=== PATIENT | female | born 1965 | race Caucasian/White ===

== ENCOUNTER → 2016-10-22 | Outpatient (CLI) | payer OTHER ==
--- NOTE | 2016-10-22 17:13 | MR ---
MRI of the Cervical Spine (Without Contrast) at 1359 hour History: Numbness and tingling left arm. History of degenerative disk disease cervical spine. (R 20.2 ) Technique: Sagittal T1, T2, and STIR along with axial T2 weighted 3-D FSE and T2 weighted COSMIC MR s equences of the cervical spine without contrast. Findings: Cervical vertebral bodies are normal in height and alignment without compression fractur es or spondylolisthesis. Cerebellar tonsils are in normal position. Cervical spinal cord demonstrate s normal signal without cord edema or myelomalacia. There is a dominant cystic structure in the sella measuring 15 x 12 mm on the more superior margin of the image obtained. C2-C3: Normal. C3-C4: Mild desiccation and loss of disk height. There is mild diffuse disk bulge causing minimal com pression upon the dural sac without consequences. C4-C5: Normal. C5-C6: Desiccation and loss of disk height. There is moderate diffuse disk bulge with associated fredi inal osteophyte that abuts the anterior margin of the cervical spinal cord with some loss of surround ing CSF compatible with moderate spinal stenosis. There is mild to moderate bilateral neural foramina l stenosis secondary to posterior lateral disk bulge with osteophyte formation. C6-C7: Mild to moderate desiccation and loss of disk height. There is mild to moderate diffuse disk b ulge causing mild compression upon the anterior dural sac with mild spinal stenosis good there is mil d bilateral neural foraminal stenosis secondary to disk and osteophyte. C7-T1: Normal. Impression: 1. Degenerative disk disease lower cervical spine with findings most prominent at C5-C6 and at C6-C7 as detailed above. 2. Cystic lesion within the sella along the superior margin of the images obtained. This is nonspecif ic but could represent Rathke's cleft cyst versus possibility of empty sella or arachnoid cyst. Crani opharyngioma is felt to be less likely. Consider dedicated MRI pituitary without and with contrast fo r further characterization. Please see findings at specific disk levels. A Follow-Up Required test result notification was sent via the [employer] service, 5:11:47 PM, 10/22/2016, [employer] Message ID [id number].
== END ==
LOC: FIMAGING 13:37
PROVIDERS: ATTEND Internal Medicine
DX: M50.822 Other cervical disc disorders at C5-C6 level (principal); M50.823 Other cervical disc disorders at C6-C7 level; R93.8 Abnormal findings on diagnostic imaging of other specified body structures

== ENCOUNTER → 2017-01-08 | Outpatient (CLI) | payer OTHER ==
[~2017-01-08] MED LIST: GADOBUTROL 10 ML VIAL IVP ONE
== END ==
LOC: FIMAGING 14:11
PROVIDERS: ATTEND Internal Medicine
DX: E23.6 Other disorders of pituitary gland (principal)
CPT/HCPCS: A9585